=== PATIENT | female | born 1980 | race Hispanic/Latino ===

== ENCOUNTER 2017-10-10 14:19 | Emergency (ER) | payer MEDICAID ==
[~2017-10-10 14:19] MED LIST: SERT100T PO
== END 2017-10-10 14:58 | disposition home or self-care (01) ==
LOC: EDH 14:19
DX: F41.1 Generalized anxiety disorder (principal); M19.012 Primary osteoarthritis, left shoulder; R07.9 Chest pain, unspecified
CPT/HCPCS: 93005

== ENCOUNTER 2017-11-16 15:55 | Emergency (ER) | payer MEDICAID ==
[2017-11-16] MEDS ORDERED: DEXAMETHASONE SOD PHOSPHATE 10MG/ML 1ML VIAL ONE (16:29)
== END 2017-11-16 17:26 | disposition home or self-care (01) ==
LOC: EDH 15:55
DX: J01.10 Acute frontal sinusitis, unspecified (principal); G43.909 Migraine, unspecified, not intractable, without status migrainosus; E78.5 Hyperlipidemia, unspecified; M79.1 Myalgia; M19.90 Unspecified osteoarthritis, unspecified site; Z90.710 Acquired absence of both cervix and uterus
CPT/HCPCS: 96372; 99283; J1100

== ENCOUNTER 2018-01-01 12:56 | Emergency (ER) | payer MEDICAID ==
[2018-01-01] MEDS ORDERED: DIPHENHYDRAMINE HCL 25 MG CAPSULE ONE (13:22)
[2018-01-01] MEDS ORDERED: SODIUM CHLORIDE 0.9% 1000ML 1,000 ML IV ONE (13:22)
[2018-01-01] MEDS ORDERED: METOCLOPRAMIDE 10 MG TABLET ONE (13:22)
[2018-01-01] MEDS ORDERED: ONDANSETRON ODT 4 MG TAB ONE (13:22)
[2018-01-01 13:43] LABS: BASOPHILS % (AUTO) 0.3 % (0.0-5.0); EOSINOPHILS % (AUTO) 0.6 % (0.0-8.0); LYMPHOCYTES % (AUTO) 18.9 % (21.0-51.0); MEAN CORPUSCULAR HEMOGLOBIN 31.8 pg (27.0-33.0); MEAN CORPUSCULAR HGB CONC 34.3 g/dL (32.0-36.0); MEAN CORPUSCULAR VOLUME 92.6 fL (79-99); MONOCYTES % (AUTO) 5.9 % (3.0-13.0); NEUTROPHILS % (AUTO) 74.3 % (40.0-77.0); PLATELET COUNT (AUTO) 241 K/uL (130-400); RED BLOOD CELL COUNT(AUTO) 4.53 MIL/uL (4.00-5.50); RED CELL DISTRIBUTION WIDTH 15.4 % (11.0-15.5); WHITE BLOOD COUNT (AUTO) 7.1 K/uL (4.8-10.8)
[2018-01-01 13:56] LABS: CREATININE 0.6 mg/dL (0.5-1.5); POTASSIUM 4.4 mmol/L (3.5-5.1)
[2018-01-01 14:01] LABS: ALBUMIN 3.7 g/dL (3.5-5.0); BILIRUBIN,TOTAL 0.3 mg/dL (0.2-1.0); TOTAL PROTEIN, SERUM 7.3 g/dL (6.0-8.3)
[2018-01-01] MEDS ORDERED: KETOROLAC TROMETHAMINE 15MG/ML ONE (15:08)
== END 2018-01-01 15:33 | disposition home or self-care (01) ==
LOC: EDH 12:56
DX: G43.009 Migraine without aura, not intractable, without status migrainosus (principal); E78.5 Hyperlipidemia, unspecified; M19.90 Unspecified osteoarthritis, unspecified site
CPT/HCPCS: 36415; 70450; 80053; 85025; 96361; 96374; 99285; J1885; J7030; Q0163

== ENCOUNTER 2021-07-17 02:50 | Emergency (ER) | payer MEDICAID ==
[~2021-07-17] VITALS: Ht 162.6 cm; Wt 90.7 kg
[2021-07-17 04:33] VITALS: BP 119/74
== END 2021-07-17 04:40 | disposition home or self-care (01) ==
LOC: EDH 02:50
DX: B34.9 Viral infection, unspecified (principal); R07.89 Other chest pain; Z20.822 Contact with and (suspected) exposure to COVID-19; M19.90 Unspecified osteoarthritis, unspecified site; F41.9 Anxiety disorder, unspecified; M79.7 Fibromyalgia; F32.A Depression, unspecified; Z79.899 Other long term (current) drug therapy
CPT/HCPCS: 87635; 87804 ×2; 99283; C9803

== ENCOUNTER → 2024-02-25 | Outpatient (CLI) | payer MEDICAID ==
[~2024-02-25] MED LIST changes: +GADOTERATE MEGLUMINE 10 MMOL/20 ML VIAL IV ONE
== END | disposition home or self-care (01) ==
LOC: RAH 08:02
PROVIDERS: ATTEND Internal Medicine Gastroenterology
DX: K80.20 Calculus of gallbladder without cholecystitis without obstruction (principal); K76.89 Other specified diseases of liver; R10.11 Right upper quadrant pain; R93.2 Abnormal findings on diagnostic imaging of liver and biliary tract
CPT/HCPCS: 74183; A9575